=== PATIENT | female | born 1985 | race Caucasian/White ===

== ENCOUNTER 2017-01-04 17:36 | Emergency (ER) | payer MEDICAID ==
[~2017-01-04] VITALS: Ht 160 cm; Wt 63.0 kg
[~2017-01-04 17:36] MED LIST: DENIES
[2017-01-04 17:40] VITALS: Ht 160 cm; Wt 63.0 kg
[2017-01-04] MEDS ORDERED: CARB15DR50 RIGHT EAR (19:40)
[2017-01-04] MEDS ORDERED: PSEU120T51 PO (19:41)
[2017-01-04] MEDS ORDERED: TYL500 PO (19:41)
--- NOTE | 2017-01-04 19:51 | ERD ---
ER Documentation Chief Complaint Date/Time DATE: 01/04/17 TIME: 19:48 Chief Complaint Pt with R ear pain X 3 days. HPI This is a 31-year-old female presents to the ER with right ear pain for the last 3 days. Patient states she has had decreased hearing. She is also complaining of a runny nose and sore throat. Patient denies a cough. Patient denies any discharge from her ear. There are no sick contacts at home. She denies any fevers or chills. ROS 12 point review of systems was done, all negative except per HPI. Medications Home Meds Active Scripts Pseudoephedrine Hcl (Sudafed 12 Hour) 120 Mg Tablet.sa, 120 MG PO Q12 for 3 Days Prov:MELVIN HUIZAR 01/04/17 Acetaminophen* (Tylenol*) 500 Mg Tab, 500 MG PO Q4H Y for MILD PAIN LEVEL 1-3 for 3 Days, TAB Prov:MELVIN HUIZAR 01/04/17 Carbamide Peroxide* (Debrox*) 6.5% - 15 Ml Drops, 10 DROP RIGHT EAR BID for 5 Days, BOTTLE Prov:MELVIN HUIZAR Gunjan 01/04/17 Reported Medications [Denies] No Conflict Check 04/10/12 Allergies Allergies: Coded Allergies: No Known Allergy (Unverified , 04/10/12) PMhx/Soc History of Surgery: No Anesthesia Reaction: No Hx Neurological Disorder: No Hx Respiratory Disorders: No Hx Cardiac Disorders: No Hx Psychiatric Problems: No Hx Miscellaneous Medical Probl: No Hx Alcohol Use: No Hx Substance Use: No Hx Tobacco Use: No Smoking Status: Never smoker Physical Exam Vitals Vital Signs Date Time Temp Pulse Resp B/P Pulse Ox O2 Delivery O2 Flow Rate FiO2 01/04/17 17:40 98.8 77 18 124/67 100 Physical Exam GENERAL: The patient is well-developed, well-nourished, in no acute distress. NECK: Cervical spine is non tender with no step off. Supple, no nuchal rigidity HEENT: Atraumatic. Pupils equal, round and reactive to light. Extraocular muscles are grossly intact. Conjunctivae pink, no discharge. Bilateral tympanic membranes are clear with no evidence of erythema, effusion or dulling of the light reflex. Patient does have cerumen impaction to the right Tonsilar erythema with no exudates or uvular deviation. Clear rhinorrhea. RESPIRATORY: Clear to auscultation bilaterally. There are no rales, wheezes or rhonchi. HEART: Regular rate and rhythm. No murmurs, clicks, rubs or gallops. EXTREMITIES: No clubbing or cyanosis. Full range of motion. Grossly neurovascularly intact. NEUROLOGIC: Alert and oriented. Cranial nerves II through XII are intact. SKIN: There is no rash. The skin is warm and dry. Procedures/MDM Differential diagnosis includes but is not limited to; Viral URI, allergic rhinitis, bronchitis, pertussis,pneumonia. This is likely viral in etiology. Clinical suspicion for pneumonia is low as patient appears well, is not hypoxic or in any respiratory distress. Additionally, she did have cerumen impaction irrigation was seen in the ER and a lot of the wax was removed, patient will be sent home with Debrox.. Plan was discussed with patient they understand and agree. Patient needs to follow up with PCP in 1-2 days or return to ER sooner if symptoms worsen. Departure Diagnosis: Primary Impression: Cerumen impaction Condition: Stable Patient Instructions: Cerumen Impaction, Home Care Additional Instructions: Call your primary care doctor TOMORROW for an appointment during the next 1-2 days.See the doctor sooner or return here if your condition worsens before your appointment time. MELVIN HUIZAR Jan 04, 2017 19:51
== END 2017-01-04 20:00 | disposition home or self-care (01) ==
LOC: FTE 17:36
DX: H61.21 Impacted cerumen, right ear (principal)
CPT/HCPCS: 69209; Z7502